=== PATIENT | male | born 1955 | race American Indian/Alaskan Native ===

== ENCOUNTER 2018-11-04 15:24 | Outpatient (CLI) | payer BC, OTHER ==
--- NOTE | 2018-11-04 15:54 | XRay Report ---
XRAY CHEST TWO VIEWS: 11/04/18 15:24:00 CLINICAL: Chest congestion COMPARISON: None FINDINGS: Normal heart and pulmonary vasculature. The lungs are normally expanded and clear.Degenerative change in the spine. IMPRESSION: No acute cardiopulmonary process.
== END 2018-11-04 15:25 | disposition home or self-care (01) ==
LOC: SPVIMAG 15:24
PROVIDERS: ATTEND Internal Medicine
DX: R09.89 Other specified symptoms and signs involving the circulatory and respiratory systems (principal)
CPT/HCPCS: 71046